=== PATIENT | female | born 1945 | race Hispanic/Latino ===

== ENCOUNTER 2018-06-14 20:12 | Emergency (ER) | payer MEDICARE, OTHER ==
[~2018-06-14] VITALS: Ht 152.4 cm; Wt 68.9 kg
[~2018-06-14 20:12] MED LIST: ATORVASTATIN CA10 MG PO; DIOVAN160 MG PO; HYDROCHLOROTHIA25 MG PO; LISINOPRIL10 MG; NEURONTIN100 MG; PROTONIX20 MG; RANITIDINE HCL300 M1 PO
--- OUTSIDE RECORDS SUMMARY | 2018-06-14 20:15 | XMS REPORT ---
Author [facility] Address Unknown Phone Unavailable Care Team Providers Care Production Operations Engineer Name Role Phone Don ASNTOS Unavailable Unavailable Lorrie JACKSON Unavailable Unavailable Problems This patient has no known problems. Allergies, Adverse Reactions, Alerts This patient has no known allergies or adverse reactions. Medications This patient has no known medications. Results Test Description Test Time Test Comments Text Results Atomic Results Result Comments CT BRAIN WO [place] [address] Patient Name: SUSI CHUNG MR #: [id number] : 1945 Age/Sex: 71/F Req #: [id number] Adm Physician: Ordered by: DONTAE SANTOS MD Report #: [id number] Location: ER Room/Bed: Procedure: [id number] CT/CT BRAIN WO Exam Date: 03/18/17 Exam Time: 1626 REPORT STATUS: Signed History: Left side weakness Comparison studies: None Technique: Axial images were obtained from the skull base to the vertex. Coronal and sagittal reconstructions obtained from the axial data. Findings: Scalp/skull: No abnormalities. No fractures, blastic or lytic lesions. Extra-axial spaces: No masses. No fluid collections. Brain sulci: Appropriate for age. Ventricles: Normal in size and configuration. No hydrocephalus. Parenchyma: No abnormal densities. No masses, hemorrhage, acute or chronic cortical vascular insults. Sellar/suprasellar region: No abnormalities Craniocervical junction: Patent foramen magnum. No Chiari one malformation. IMPRESSION: No abnormalities. Signed by: Dr. Greg Diaz M.D. on 03/18/2017 6:08 PM Dictated By: GREG DIAZ MD, MD 07 Transcribed By: HASMUKH on 03/18/171807 COPY TO: DONTAE SANTOS MD CT ABDOMEN/PELVIS W [place] [address] Patient Name: SUSI CHUNG MR #: [id number] : 1945 Age/Sex: 71/F Req #: [id number] Adm Physician: Ordered by: SATNAM JACKSON MD Report #: [id number] Location: ER Room/Bed: Procedure: [id number] CT/CT ABDOMEN/PELVIS W Exam Date: Exam Time: REPORT STATUS: Signed PROCEDURE: CT ABDOMEN AND PELVIS WITH CONTRAST COMPARISON: None. INDICATIONS: LOW ABDOMINAL PAIN, RADIATES TO BACK TECHNIQUE: Multidetector CT scanning of the abdomen and pelvis was performed from the level of the lung bases to below the symphysis pubis, after intravenous administration of 100 cc nonionic contrast. Coronal and sagittal reformations were obtained. FINDINGS: Lung bases: Clear. The visualized portion of the mediastinum is normal.. Abdomen: Liver: Normal in attenuation without mass. Gallbladder: Present and normal in appearance. Biliary tree: No intrahepatic or extra hepatic biliary ductal dilatation. Pancreas: Mild fatty atrophy without mass or duct dilatation. Spleen: Normal size and attenuation without mass. Adrenal glands: No evidence of m ass. Kidneys: Symmetric enhancement. No hydronephrosis. No cortical mass. Stomach: Distended with fluid. No perigastric inflammation. Aorta: Normal in diameter. The common iliac arteries are ectatic but not aneurysmally dilated. No free fluid or free air. Pelvis: Small bowel: Normal diameter with normal wall thickness. Large bowel: Diverticulosis coli of the sigmoid colon with mild peridiverticular inflammation of the mid sigmoid colon. No associated fluid collection. No large bowel dilatation. The appendix is normal. Bladder: Normal. No ureteral dilatation. The uterus is present. An enhancing lesion in the endometrial measures 2 cm. There are no adnexal masses. There is a trace amount of pelvic free fluid. No loculated fluid collection. Bones and soft tissues: Fat-containing umbilical hernia has an aperture of 12 mm. There is dextroscoliosis of the lumbar spine with superimposed endplate degenerative change. There is no evidence of lytic or blastic lesion. CONCLUSION: 1. Acute mild diverticulitis of the midsigmoid colon without evidence of abscess formation or bowel obstruction. 2. Enhancing mass in the endometrium could represent a polyp or fibroid. Recommend further evaluation with pelvic ultrasound. This can be performed on outpatient basis. Dictated by: Mary Beth Medel M.D. on 02/27/2017 at 14:23 Electronically approved by: Mary Beth Medel M.D. on 02/27/2017 at 14:23 Dictated By: MARY BETH MEDEL MD 1423 Transcribed By: PUJA on 02/27/17 1423 COPY TO: SATNAM JACKSON MD
--- NOTE | 2018-06-14 22:35 | Diagnostic Imaging Report ---
EXAMINATION: CHEST SINGLE (NOT PORTABLE) INDICATION: Cough, congestion, fever, chills. Midsternal discomfort. Patient states recent sternal biopsy. COMPARISON: None FINDINGS: AP view TUBES and LINES: None. LUNGS: Lungs are well inflated. Lungs are clear. There is no evidence of pneumonia or pulmonary edema. PLEURA: No pleural effusion or pneumothorax. HEART AND MEDIASTINUM: The cardiomediastinal silhouette is unremarkable. BONES AND SOFT TISSUES: No acute osseous lesion. Soft tissues are unremarkable. UPPER ABDOMEN: No free air under the diaphragm. IMPRESSION: No acute thoracic abnormality. Signed by: DR. Marc De León MD on 06/14/2018 10:31 PM
[2018-06-15 00:06] LABS: BASOPHILS % 0.4 % (0.0-1.0); EOSINOPHILS # (AUTO) 0.2 (0.0-0.4); EOSINOPHILS % 3.9 % (0.0-6.0); HEMATOCRIT 40.6 % (34.2-44.1); HEMOGLOBIN 13.9 g/dL (12.0-16.0); LYMPHOCYTES # (AUTO) 1.9 (1.0-3.2); LYMPHOCYTES % 33.7 % (18.0-39.1); MEAN CORPUSCULAR HEMOGLOBIN 29.5 pg (28-32); MEAN CORPUSCULAR HGB CONC 34.2 g/dL (31-35); MEAN CORPUSCULAR VOLUME 86.2 fL (81-99); MONOCYTES # (AUTO) 0.6 (0.2-0.8); NEUTROPHILS # (AUTO) 2.9 (2.1-6.9); NEUTROPHILS % 51.6 % (38.7-80.0); PLATELET COUNT 270 x10e3/uL (140-360); RED BLOOD COUNT 4.71 x10e6/uL (3.6-5.1); RED CELL DISTRIBUTION WIDTH 12.4 % (11.7-14.4)
[2018-06-15 00:09] LABS: CLARITY,URINE CLEAR (CLEAR); COLOR,URINE YELLOW (YELLOW)
[2018-06-15 00:10] LABS: BACTERIA,URINE RARE /HPF; BILIRUBIN,URINE NEGATIVE (NEGATIVE); EPITHELIAL CELLS,URINE FEW /LPF; KETONES,URINE NEGATIVE (NEGATIVE); LEUKOCYTE ESTERASE ,URINE TRACE (NEGATIVE); NITRITE,URINE NEGATIVE (NEGATIVE); PROTEIN,URINE DIPSTICK NEGATIVE (NEGATIVE); RBC,URINE 0-5 /HPF (0-5); URINE UROBILINOGEN 0.2 mg/dL (0.2 - 1)
[2018-06-15 00:14] LABS: INR 0.87; PROTHROMBIN TIME 12.7 seconds (11.9-14.5)
[2018-06-15 00:15] LABS: PARTIAL THROMBOPLASTIN TIME 28.3 seconds (23.8-35.5)
[2018-06-15 00:33] LABS: ALANINE AMINOTRANSFERASE 17 IU/L (0-55); ALBUMIN 3.7 g/dL (3.5-5.0); ALBUMIN/GLOBULIN RATIO 0.8 (0.8-2.0); ALKALINE PHOSPHATASE 92 IU/L (40-150); ANION GAP 14.4 mmol/L (8-16); BLOOD UREA NITROGEN 20 mg/dL (7-26); BUN/CREATININE RATIO 21 (6-25); CALCIUM 10.1 mg/dL (8.4-10.2); CARBON DIOXIDE 28 mmol/L (22-29); CHLORIDE 100 mmol/L (98-107); CREATINE KINASE 56 IU/L (29-168); CREATININE, SERUM 0.94 mg/dL (0.57-1.11); EST GLOMERULAR FILTRATION RATE 59 ML/MIN (60-); GLUCOSE 99 mg/dL (74-118); POTASSIUM 3.4 mmol/L (3.5-5.1); SODIUM 139 mmol/L (136-145)
[2018-06-15] MEDS ORDERED: MORPHINE SULFATE 2 MG/ML SYR IV STA (00:55)
[2018-06-15] MEDS ORDERED: ONDANSETRON HCL INJ 2 MG/ML VIAL IV STA (00:55)
[2018-06-15] MEDS ORDERED: POTASSIUM CHLORIDE 20 MEQ TAB CR PO STA (00:55)
[2018-06-15] MEDS ORDERED: CEFTRIAXONE SOD 1 GM VIAL IV ONE (01:00)
[2018-06-15] MEDS ORDERED: MORPHINE SULFATE INJ 4 MG/ML INJ ONE (01:26)
[2018-06-15 02:42] VITALS: BP 121/70
== END 2018-06-15 02:53 | disposition home or self-care (01) ==
LOC: ER 20:12
DX: R07.89 Other chest pain (principal); N30.90 Cystitis, unspecified without hematuria
CPT/HCPCS: 36415; 71045; 80053; 81001; 82550; 82553; 84484; 85025; 85610; 85730; 93005 ×2; 99284; J0696; J2270; J2405

== ENCOUNTER 2018-07-16 23:39 | Emergency (ER) | payer MEDICARE, OTHER ==
[~2018-07-16] VITALS: Ht 154.9 cm; Wt 68.9 kg
--- NOTE | 2018-07-17 00:45 | Diagnostic Imaging Report ---
CHEST 2 VIEWS, Technique: CHEST 2 VIEWS Comparison: 06/14/2018 Clinical history: Cough DISCUSSION: Lateral is degraded by overlying arm/soft tissues. Stable cardiac silhouette status post interval median sternotomy. Mild linear right greater than left bibasilar opacity, favor atelectasis. No effusion or pneumothorax. Partially imaged mild superior endplate compression of an upper lobe lumbar vertebral body. IMPRESSION: Mild bibasilar atelectasis. Signed by: Dr Celestina Sheppard MD on 07/17/2018 12:42 AM
[2018-07-17 02:02] VITALS: BP 136/71
== END 2018-07-17 02:18 | disposition home or self-care (01) ==
LOC: ER 23:39
DX: R05 Cough (principal); J20.9 Acute bronchitis, unspecified
CPT/HCPCS: 71046; 99283

== ENCOUNTER 2019-06-02 16:09 | Emergency (ER) | payer MEDICARE, OTHER ==
[~2019-06-02] VITALS: Ht 154.9 cm; Wt 68.9 kg
[2019-06-02] MEDS ORDERED: KETOROLAC TROMETHAMINE 30 MG/ML VIAL IM STA (16:48)
[2019-06-02] MEDS ORDERED: DEXAMETHASONE SOD PHOS 10 MG/1 ML VIAL IM ONE (17:00)
[2019-06-02] MEDS ORDERED: ALBUTEROL/IPRATROPIUM 3 ML NEB NEB ONE (17:00)
== END 2019-06-02 18:37 | disposition home or self-care (01) ==
LOC: ER 16:09
DX: R05 Cough (principal); T46.5X5A Adverse effect of other antihypertensive drugs, initial encounter; I10 Essential (primary) hypertension; E78.5 Hyperlipidemia, unspecified; K21.9 Gastro-esophageal reflux disease without esophagitis; Z88.5 Allergy status to narcotic agent
CPT/HCPCS: 94640; 99284; J1100; J1885

== ENCOUNTER 2020-10-07 14:09 | Emergency (ER) | payer MEDICARE, OTHER ==
[~2020-10-07] VITALS: Ht 152.4 cm; Wt 68.9 kg
[2020-10-07] MEDS ORDERED: KETOROLAC TROMETHAMINE 60 MG/2 ML VIAL IM ONE (14:45)
[2020-10-07] MEDS ORDERED: DEXAMETHASONE SOD PHOS 10 MG/1 ML VIAL IM ONE (14:45)
[2020-10-07 15:19] VITALS: BP 132/71
[2020-10-10] MEDS ORDERED: ULTRAM50 MG PO (22:11)
[2020-10-10] MEDS ORDERED: ONDANSETRON ODT4 MG PO (22:11)
== END 2020-10-07 15:40 | disposition home or self-care (01) ==
LOC: ER 14:48
DX: M54.41 Lumbago with sciatica, right side (principal); I10 Essential (primary) hypertension; E78.5 Hyperlipidemia, unspecified; K21.9 Gastro-esophageal reflux disease without esophagitis; M06.9 Rheumatoid arthritis, unspecified
CPT/HCPCS: 99283; J1100; J1885

== ENCOUNTER 2020-10-15 10:05 | Emergency (ER) | payer OTHER, MEDICARE ==
[~2020-10-15] VITALS: Ht 152.4 cm; Wt 67.6 kg
[~2020-10-15 10:05] MED LIST changes: +ONDANSETRON ODT4 MG PO; +ULTRAM50 MG PO
[2020-10-15] MEDS ORDERED: TRAMADOL HCL 50 MG TAB PO ONE (10:45)
[2020-10-15] MEDS ORDERED: ULTRAM50 MG PO (12:09)
[2020-10-15 14:31] VITALS: BP 124/56
== END 2020-10-15 12:21 | disposition home or self-care (01) ==
LOC: ER 10:44
DX: M25.562 Pain in left knee (principal); M77.32 Calcaneal spur, left foot; M79.89 Other specified soft tissue disorders; W01.0XXA Fall on same level from slipping, tripping and stumbling without subsequent striking against object, initial encounter; Y93.01 Activity, walking, marching and hiking; Y92.008 Other place in unspecified non-institutional (private) residence as the place of occurrence of the external cause; I10 Essential (primary) hypertension; E78.5 Hyperlipidemia, unspecified; K21.9 Gastro-esophageal reflux disease without esophagitis; M06.9 Rheumatoid arthritis, unspecified; Z79.01 Long term (current) use of anticoagulants
CPT/HCPCS: 70450; 72125; 99283

== ENCOUNTER 2020-11-12 03:02 | Inpatient (IN) | payer MEDICARE, OTHER ==
[~2020-11-12] VITALS: Ht 152.4 cm; Wt 66.7 kg
[2020-11-12] VITALS (7 sets, daily range): BP systolic 130–175; BP diastolic 71–89
[2020-11-12] MEDS ORDERED: ONDANSETRON HCL INJ 2MG/ML 2ML 2 MG/ML VIAL IV STA (03:26)
[2020-11-12] MEDS ORDERED: PANTOPRAZOLE 40 MG 10ML VIAL IV STA (03:26)
[2020-11-12] MEDS ORDERED: SODIUM CHLORIDE 0.9% 1000ML 1,000 ML IV ONE (03:30)
[2020-11-12] MEDS ORDERED: DICYCLOMINE HCL 20 MG/2 ML VIAL IM ONE ×2 (03:30→03:38)
[2020-11-12 03:31] LABS: BASOPHILS # (AUTO) 0.1 (0.0-0.1); BASOPHILS % 0.3 % (0.0-1.0); EOSINOPHILS % 0.1 % (0.0-6.0); HEMATOCRIT 41.2 % (34.2-44.1); HEMOGLOBIN 14.2 g/dL (12.0-16.0); LYMPHOCYTES % 6.1 % (18.0-39.1); MEAN CORPUSCULAR HEMOGLOBIN 30.5 pg (28-32); MEAN CORPUSCULAR HGB CONC 34.5 g/dL (31-35); MEAN CORPUSCULAR VOLUME 88.4 fL (81-99); MONOCYTES # (AUTO) 1.3 (0.2-0.8); MONOCYTES % 7.9 % (4.4-11.3); NEUTROPHILS # (AUTO) 14.2 (2.1-6.9); NEUTROPHILS % 84.8 % (38.7-80.0); PLATELET COUNT 204 x10e3/uL (140-360); RED BLOOD COUNT 4.66 x10e6/uL (3.6-5.1); RED CELL DISTRIBUTION WIDTH 13.3 % (11.7-14.4)
[2020-11-12] MEDS ORDERED: SODIUM CHLORIDE 0.9% 1000ML 1,000 ML ONE (03:38)
[2020-11-12] MEDS ORDERED: ONDANSETRON HCL INJ 2MG/ML 2ML 2 MG/ML VIAL ONE (03:38)
[2020-11-12] MEDS ORDERED: PANTOPRAZOLE 40 MG 10ML VIAL ONE (03:38)
[2020-11-12 03:48] LABS: AMYLASE 201 U/L (25-125); LIPASE 341 U/L (8-78)
[2020-11-12 03:52] LABS: ALANINE AMINOTRANSFERASE 17 IU/L (0-55); ALBUMIN 3.8 g/dL (3.5-5.0); ALBUMIN/GLOBULIN RATIO 1.1 (0.8-2.0); ALKALINE PHOSPHATASE 82 IU/L (40-150); ANION GAP 13.1 mmol/L (8-16); BLOOD UREA NITROGEN 19 mg/dL (7-26); BUN/CREATININE RATIO 24 (6-25); CALCIUM 9.4 mg/dL (8.4-10.2); CARBON DIOXIDE 21 mmol/L (22-29); CHLORIDE 107 mmol/L (98-107); CREATINE KINASE 38 IU/L (29-168); EST GLOMERULAR FILTRATION RATE > 60 ML/MIN (60-); GLUCOSE 128 mg/dL (74-118); POTASSIUM 4.1 mmol/L (3.5-5.1); SODIUM 137 mmol/L (136-145)
[2020-11-12] MEDS ORDERED: PIPERACILLIN/TAZOBACTAM 3.375 GM in SODIUM CHLORIDE 0.9% 50ML 50 ML IV ONE (04:00)
[2020-11-12 04:04] LABS: CLARITY,URINE SL CLOUDY (CLEAR); COLOR,URINE YELLOW (YELLOW); KETONES,URINE NEGATIVE (NEGATIVE); LEUKOCYTE ESTERASE ,URINE NEGATIVE (NEGATIVE); NITRITE,URINE NEGATIVE (NEGATIVE); PROTEIN,URINE DIPSTICK NEGATIVE (NEGATIVE); URINE UROBILINOGEN 0.2 mg/dL (0.2 - 1)
[2020-11-12 04:11] LABS: AMORPHOUS SEDIMENT,URINE FEW (FEW); BACTERIA,URINE FEW /HPF; EPITHELIAL CELLS,URINE MODERATE /LPF; WBC,URINE (MAN) 0-5 /HPF (0-5)
[2020-11-12] MEDS ORDERED: IOPAMIDOL 370 MG/ML 200 ML INFUS..BTL INJ ONE (04:16)
[2020-11-12] MEDS ORDERED: SODIUM CHLORIDE 0.9% 50ML 50 ML ONE (04:16)
[2020-11-12] MEDS ORDERED: MORPHINE SULFATE INJ 2 MG/ML SYR IV PRN (05:00)
[2020-11-12] MEDS: SODIUM CHLORIDE 0.9% 1000ML 1,000 ML IV SCH ×3 (05:53→21:00)
[2020-11-12] MEDS ORDERED: COREG12.5 MG PO (08:10)
[2020-11-12] MEDS ORDERED: OMEPRAZOLE40 MG PO (08:10)
[2020-11-12] MEDS ORDERED: METOPROLOL TARTRATE INJ 1 MG/ML VIAL IV PRN (10:30)
[2020-11-12] MEDS: FAMOTIDINE 20 MG/2 ML VIAL IV SCH (17:00)
[2020-11-12] MEDS: CARVEDILOL 12.5 MG TAB PO SCH (17:00)
[2020-11-12] MEDS: PIPERACILLIN/TAZOBACTAM 3.375 GM in SODIUM CHLORIDE 0.9% 50ML 50 ML IV SCH ×3 (18:46→23:46)
[2020-11-12] MEDS: ATORVASTATIN 10 MG TAB PO SCH (21:00)
[2020-11-13] VITALS (8 sets, daily range): BP systolic 116–164; BP diastolic 68–82
[2020-11-13] MEDS: SODIUM CHLORIDE 0.9% 1000ML 1,000 ML IV SCH ×3 (05:00→20:49)
[2020-11-13 05:34] LABS: BASOPHILS % 0.4 % (0.0-1.0); EOSINOPHILS # (AUTO) 0.1 (0.0-0.4); EOSINOPHILS % 1.7 % (0.0-6.0); LYMPHOCYTES # (AUTO) 1.7 (1.0-3.2); LYMPHOCYTES % 23.9 % (18.0-39.1); MEAN CORPUSCULAR HEMOGLOBIN 30.1 pg (28-32); MEAN CORPUSCULAR HGB CONC 33.3 g/dL (31-35); MEAN CORPUSCULAR VOLUME 90.4 fL (81-99); MONOCYTES # (AUTO) 0.7 (0.2-0.8); MONOCYTES % 9.2 % (4.4-11.3); NEUTROPHILS # (AUTO) 4.6 (2.1-6.9); PLATELET COUNT 156 x10e3/uL (140-360); RED BLOOD COUNT 3.65 x10e6/uL (3.6-5.1); RED CELL DISTRIBUTION WIDTH 13.7 % (11.7-14.4)
[2020-11-13] MEDS: PIPERACILLIN/TAZOBACTAM 3.375 GM in SODIUM CHLORIDE 0.9% 50ML 50 ML IV SCH ×3 (05:46→21:32)
[2020-11-13 06:01] LABS: ALANINE AMINOTRANSFERASE 15 IU/L (0-55); ALBUMIN 2.6 g/dL (3.5-5.0); ALBUMIN/GLOBULIN RATIO 1.1 (0.8-2.0); ALKALINE PHOSPHATASE 55 IU/L (40-150); AMYLASE 48 U/L (25-125); ANION GAP 11.6 mmol/L (8-16); BLOOD UREA NITROGEN 11 mg/dL (7-26); BUN/CREATININE RATIO 15 (6-25); CALCIUM 8.1 mg/dL (8.4-10.2); CARBON DIOXIDE 19 mmol/L (22-29); CHLORIDE 113 mmol/L (98-107); CREATININE, SERUM 0.72 mg/dL (0.57-1.11); EST GLOMERULAR FILTRATION RATE > 60 ML/MIN (60-); GLUCOSE 80 mg/dL (74-118); LIPASE 28 U/L (8-78); POTASSIUM 3.6 mmol/L (3.5-5.1); SODIUM 140 mmol/L (136-145)
[2020-11-13] MEDS: CARVEDILOL 12.5 MG TAB PO SCH ×2 (08:00→18:12)
[2020-11-13] MEDS: PANTOPRAZOLE SOD 40 MG TABEC PO SCH (09:00)
[2020-11-13] MEDS: FAMOTIDINE 20 MG/2 ML VIAL IV SCH ×2 (09:00→18:12)
[2020-11-13] MEDS: ONDANSETRON HCL INJ 2MG/ML 2ML 2 MG/ML VIAL IV PRN ×2 (09:36→18:07)
[2020-11-13] MEDS: MORPHINE SULFATE INJ 4 MG/ML INJ 1ML IV PRN ×2 (09:36→18:07)
[2020-11-13] MEDS: ATORVASTATIN 10 MG TAB PO SCH (20:49)
[2020-11-14] VITALS (7 sets, daily range): BP systolic 116–159; BP diastolic 66–85
[2020-11-14] MEDS: SODIUM CHLORIDE 0.9% 1000ML 1,000 ML IV SCH ×3 (05:00→22:16)
[2020-11-14] MEDS: PIPERACILLIN/TAZOBACTAM 3.375 GM in SODIUM CHLORIDE 0.9% 50ML 50 ML IV SCH ×3 (05:38→22:16)
[2020-11-14 07:53] LABS: BASOPHILS % 0.5 % (0.0-1.0); EOSINOPHILS # (AUTO) 0.2 (0.0-0.4); EOSINOPHILS % 2.9 % (0.0-6.0); HEMATOCRIT 33.7 % (34.2-44.1); HEMOGLOBIN 11.6 g/dL (12.0-16.0); LYMPHOCYTES # (AUTO) 2.3 (1.0-3.2); LYMPHOCYTES % 39.9 % (18.0-39.1); MEAN CORPUSCULAR HEMOGLOBIN 30.4 pg (28-32); MEAN CORPUSCULAR HGB CONC 34.4 g/dL (31-35); MEAN CORPUSCULAR VOLUME 88.2 fL (81-99); MONOCYTES # (AUTO) 0.7 (0.2-0.8); MONOCYTES % 11.4 % (4.4-11.3); NEUTROPHILS # (AUTO) 2.6 (2.1-6.9); NEUTROPHILS % 44.4 % (38.7-80.0); PLATELET COUNT 157 x10e3/uL (140-360); RED BLOOD COUNT 3.82 x10e6/uL (3.6-5.1); RED CELL DISTRIBUTION WIDTH 13.6 % (11.7-14.4)
[2020-11-14] MEDS: CARVEDILOL 12.5 MG TAB PO SCH ×2 (08:00→17:00)
[2020-11-14 08:17] LABS: ANION GAP 12.3 mmol/L (8-16); BLOOD UREA NITROGEN 8 mg/dL (7-26); BUN/CREATININE RATIO 10 (6-25); CALCIUM 8.3 mg/dL (8.4-10.2); CARBON DIOXIDE 22 mmol/L (22-29); CHLORIDE 109 mmol/L (98-107); CREATININE, SERUM 0.77 mg/dL (0.57-1.11); EST GLOMERULAR FILTRATION RATE > 60 ML/MIN (60-); GLUCOSE 80 mg/dL (74-118); MAGNESIUM 1.7 MG/DL (1.3-2.1); PHOSPHORUS 3.6 MG/DL (2.3-4.7); POTASSIUM 3.3 mmol/L (3.5-5.1); SODIUM 140 mmol/L (136-145)
[2020-11-14] MEDS: PANTOPRAZOLE SOD 40 MG TABEC PO SCH (09:19)
[2020-11-14] MEDS: FAMOTIDINE 20 MG/2 ML VIAL IV SCH ×2 (09:19→17:12)
[2020-11-14] MEDS: METRONIDAZOLE 500MG/NS 100ML 100 ML IV SCH ×2 (12:33→20:42)
[2020-11-14 18:13] LABS: HEMATOCRIT 37.3 % (34.2-44.1); HEMOGLOBIN 12.7 g/dL (12.0-16.0)
[2020-11-14] MEDS: ATORVASTATIN 10 MG TAB PO SCH (20:43)
[2020-11-15] VITALS: BP 147/74
[2020-11-15] MEDS: METRONIDAZOLE 500MG/NS 100ML 100 ML IV SCH ×3 (04:01→20:34)
[2020-11-15] MEDS: ACETAMINOPHEN 325 MG TAB PO PRN (04:02)
[2020-11-15] MEDS: PIPERACILLIN/TAZOBACTAM 3.375 GM in SODIUM CHLORIDE 0.9% 50ML 50 ML IV SCH ×3 (05:01→22:45)
[2020-11-15] MEDS ORDERED: LOPERAMIDE HCL 2 MG CAP PO PRN (05:45)
[2020-11-15 06:44] LABS: BASOPHILS % 0.5 % (0.0-1.0); EOSINOPHILS # (AUTO) 0.2 (0.0-0.4); HEMATOCRIT 33.8 % (34.2-44.1); HEMOGLOBIN 11.6 g/dL (12.0-16.0); LYMPHOCYTES # (AUTO) 2.1 (1.0-3.2); LYMPHOCYTES % 37.5 % (18.0-39.1); MEAN CORPUSCULAR HEMOGLOBIN 30.2 pg (28-32); MEAN CORPUSCULAR HGB CONC 34.3 g/dL (31-35); MONOCYTES # (AUTO) 0.5 (0.2-0.8); MONOCYTES % 9.8 % (4.4-11.3); NEUTROPHILS # (AUTO) 2.6 (2.1-6.9); NEUTROPHILS % 47.8 % (38.7-80.0); PLATELET COUNT 152 x10e3/uL (140-360); RED BLOOD COUNT 3.84 x10e6/uL (3.6-5.1); RED CELL DISTRIBUTION WIDTH 13.4 % (11.7-14.4)
[2020-11-15 07:03] LABS: ANION GAP 10.7 mmol/L (8-16); BLOOD UREA NITROGEN 6 mg/dL (7-26); BUN/CREATININE RATIO 8 (6-25); CALCIUM 8.1 mg/dL (8.4-10.2); CARBON DIOXIDE 23 mmol/L (22-29); CHLORIDE 112 mmol/L (98-107); CREATININE, SERUM 0.76 mg/dL (0.57-1.11); EST GLOMERULAR FILTRATION RATE > 60 ML/MIN (60-); GLUCOSE 88 mg/dL (74-118); POTASSIUM 3.7 mmol/L (3.5-5.1); SODIUM 142 mmol/L (136-145)
[2020-11-15 07:25] LABS: MAGNESIUM 1.6 MG/DL (1.3-2.1)
[2020-11-15 07:49] LABS: PHOSPHORUS 3.4 MG/DL (2.3-4.7)
[2020-11-15 08:16] VITALS: BP 174/92
[2020-11-15] MEDS: FAMOTIDINE 20 MG/2 ML VIAL IV SCH ×2 (08:50→16:57)
[2020-11-15] MEDS: PANTOPRAZOLE SOD 40 MG TABEC PO SCH (08:50)
[2020-11-15] MEDS: CARVEDILOL 12.5 MG TAB PO SCH ×2 (08:51→17:48)
[2020-11-15 08:54] VITALS: BP 174/92
[2020-11-15] MEDS: SODIUM CHLORIDE 0.9% 1000ML 1,000 ML IV SCH ×3 (08:54→20:34)
[2020-11-15 11:52] VITALS: BP 138/68
[2020-11-15 16:22] VITALS: BP 136/99
[2020-11-15 20:00] VITALS: BP 140/80
[2020-11-15] MEDS: ATORVASTATIN 10 MG TAB PO SCH (20:34)
[2020-11-16] VITALS: BP 150/71
[2020-11-16] MEDS: ACETAMINOPHEN 325 MG TAB PO PRN (03:35)
[2020-11-16 04:00] VITALS: BP 175/86
[2020-11-16] MEDS: SODIUM CHLORIDE 0.9% 1000ML 1,000 ML IV SCH (04:23)
[2020-11-16] MEDS: METRONIDAZOLE 500MG/NS 100ML 100 ML IV SCH (04:23)
[2020-11-16] MEDS ORDERED: HYDRALAZINE HCL 20 MG/ML VIAL IV PRN (05:15)
[2020-11-16] MEDS: PIPERACILLIN/TAZOBACTAM 3.375 GM in SODIUM CHLORIDE 0.9% 50ML 50 ML IV SCH (05:52)
[2020-11-16] MEDS ORDERED: IMODIUM2 MG PO (07:32)
[2020-11-16] MEDS ORDERED: KEFLEX125 MG/5 M PO (07:32)
[2020-11-16] MEDS ORDERED: PANTOPRAZOLE SO40 MG PO (07:32)
[2020-11-16] MEDS ORDERED: FLAGYL500 MG PO (07:32)
[2020-11-16 07:58] VITALS: BP 164/76
[2020-11-16] MEDS ORDERED: HYDRALAZINE HCL 20 MG/ML VIAL IV ONE (08:10)
[2020-11-16 08:44] VITALS: BP 164/76
[2020-11-16] MEDS: CARVEDILOL 12.5 MG TAB PO SCH (08:54)
[2020-11-16] MEDS: FAMOTIDINE 20 MG/2 ML VIAL IV SCH (08:55)
[2020-11-16] MEDS: PANTOPRAZOLE SOD 40 MG TABEC PO SCH (08:55)
== END 2020-11-16 10:00 | disposition home or self-care (01) | DRG 373 ==
LOC: ER 03:08 → ERHOLD 04:52 → MED/SURG3 07:00
PROVIDERS: ADMIT Internal Medicine; ATTEND Internal Medicine
DX: A04.9 Bacterial intestinal infection, unspecified (principal); I10 Essential (primary) hypertension; K21.9 Gastro-esophageal reflux disease without esophagitis; K57.90 Diverticulosis of intestine, part unspecified, without perforation or abscess without bleeding; E78.5 Hyperlipidemia, unspecified; Z20.822 Contact with and (suspected) exposure to COVID-19
CPT/HCPCS: 36415; 74177; 80048; 80053; 81001; 82150; 82550; 82553; 83690; 83735; 84100; 84484; 85014; 85018; 85025; 87040; 87045; 87177; 87493; 93005; 99251; 99285; J0360; J0500; J2270; J2405; J2543; J7030; Q9967; U0002

== ENCOUNTER 2021-07-30 11:25 | Emergency (ER) | payer MEDICARE, OTHER ==
[~2021-07-30] VITALS: Ht 154.9 cm; Wt 66.7 kg
[~2021-07-30 11:25] MED LIST changes: +COREG12.5 MG PO; +FLAGYL500 MG PO; +IMODIUM2 MG PO; +KEFLEX125 MG/5 M PO; +OMEPRAZOLE40 MG PO; +PANTOPRAZOLE SO40 MG PO
[2021-07-30 12:11] LABS: BASOPHILS % 0.3 % (0.0-1.0); EOSINOPHILS # (AUTO) 0.1 (0.0-0.4); EOSINOPHILS % 1.4 % (0.0-6.0); HEMATOCRIT 39.6 % (34.2-44.1); HEMOGLOBIN 12.8 g/dL (12.0-16.0); LYMPHOCYTES # (AUTO) 1.8 (1.0-3.2); MEAN CORPUSCULAR HEMOGLOBIN 30.7 pg (28-32); MEAN CORPUSCULAR HGB CONC 32.3 g/dL (31-35); MONOCYTES # (AUTO) 0.7 (0.2-0.8); MONOCYTES % 9.9 % (4.4-11.3); NEUTROPHILS # (AUTO) 4.7 (2.1-6.9); NEUTROPHILS % 64.1 % (38.7-80.0); PLATELET COUNT 215 x10e3/uL (140-360); RED BLOOD COUNT 4.17 x10e6/uL (3.6-5.1); RED CELL DISTRIBUTION WIDTH 12.9 % (11.7-14.4)
[2021-07-30 12:14] LABS: CLARITY,URINE CLEAR (CLEAR); COLOR,URINE YELLOW (YELLOW)
[2021-07-30 12:15] LABS: KETONES,URINE NEGATIVE (NEGATIVE); LEUKOCYTE ESTERASE ,URINE NEGATIVE (NEGATIVE); NITRITE,URINE NEGATIVE (NEGATIVE); PROTEIN,URINE DIPSTICK NEGATIVE (NEGATIVE); URINE UROBILINOGEN 0.2 mg/dL (0.2 - 1)
[2021-07-30 12:25] LABS: BACTERIA,URINE RARE /HPF; EPITHELIAL CELLS,URINE FEW /LPF; RBC,URINE 0-5 /HPF (0-5); WBC,URINE (MAN) 0-5 /HPF (0-5)
[2021-07-30 12:38] LABS: ALBUMIN 3.4 g/dL (3.5-5.0); ANION GAP 12.4 mmol/L (8-16); CALCIUM 9.6 mg/dL (8.4-10.2); CREATININE, SERUM 0.78 mg/dL (0.57-1.11); POTASSIUM 4.4 mmol/L (3.5-5.1)
[2021-07-30] MEDS ORDERED: SODIUM CHLORIDE 0.9% 50ML 50 ML ONE (13:22)
[2021-07-30] MEDS ORDERED: IOPAMIDOL 370 MG/ML 200 ML INFUS..BTL INJ ONE (13:22)
== END 2021-07-30 14:50 | disposition home or self-care (01) ==
LOC: ER 11:30
DX: R10.30 Lower abdominal pain, unspecified (principal); I10 Essential (primary) hypertension; K57.32 Diverticulitis of large intestine without perforation or abscess without bleeding; E72.89 Other specified disorders of amino-acid metabolism
CPT/HCPCS: 36415; 74177; 80053; 81001; 83690; 85025; 99284; Q9967

== ENCOUNTER → 2021-10-11 | Day surgery (SDC) | payer MEDICARE, OTHER ==
[2021-10-09 14:53] LABS: BASOPHILS % 0.5 % (0.0-1.0); EOSINOPHILS # (AUTO) 0.1 (0.0-0.4); EOSINOPHILS % 1.4 % (0.0-6.0); HEMATOCRIT 39.9 % (34.2-44.1); HEMOGLOBIN 13.1 g/dL (12.0-16.0); LYMPHOCYTES # (AUTO) 1.8 (1.0-3.2); LYMPHOCYTES % 32.8 % (18.0-39.1); MEAN CORPUSCULAR HEMOGLOBIN 30.3 pg (28-32); MEAN CORPUSCULAR HGB CONC 32.8 g/dL (31-35); MEAN CORPUSCULAR VOLUME 92.1 fL (81-99); MONOCYTES # (AUTO) 0.5 (0.2-0.8); MONOCYTES % 9.6 % (4.4-11.3); NEUTROPHILS # (AUTO) 3.1 (2.1-6.9); NEUTROPHILS % 55.3 % (38.7-80.0); PLATELET COUNT 227 x10e3/uL (140-360); RED BLOOD COUNT 4.33 x10e6/uL (3.6-5.1); RED CELL DISTRIBUTION WIDTH 12.3 % (11.7-14.4)
[~2021-10-11] MED LIST changes: +GLYCOPYRROLATE INJ 0.2 MG/ML VIAL ONE; +HYOSCYAMINE SULFATE 0.5 MG/ML INJ ONE; +LIDOCAINE HCL 2% LOCAL INJ 5 ML SDV VIAL INJ ONE; +MIDAZOLAM HCL 2 MG/2 ML VIAL ONE; +PROPOFOL IV EMULSION 10 MG/ML 20 ML VIAL ONE
[2021-10-11 10:00] VITALS: BP 148/94
== END | disposition home or self-care (01) ==
LOC: OR 05:57
PROVIDERS: ATTEND Internal Medicine Gastroenterology
DX: K21.9 Gastro-esophageal reflux disease without esophagitis (principal); K63.5 Polyp of colon; K31.7 Polyp of stomach and duodenum; K29.50 Unspecified chronic gastritis without bleeding; K20.90 Esophagitis, unspecified without bleeding; K31.A11 Gastric intestinal metaplasia without dysplasia, involving the antrum; K25.9 Gastric ulcer, unspecified as acute or chronic, without hemorrhage or perforation; K31.1 Adult hypertrophic pyloric stenosis; K57.30 Diverticulosis of large intestine without perforation or abscess without bleeding; I78.1 Nevus, non-neoplastic; K64.8 Other hemorrhoids; I10 Essential (primary) hypertension; M62.81 Muscle weakness (generalized); R00.1 Bradycardia, unspecified; M06.9 Rheumatoid arthritis, unspecified; Z88.6 Allergy status to analgesic agent; Z01.810 Encounter for preprocedural cardiovascular examination; Z01.812 Encounter for preprocedural laboratory examination; Z20.822 Contact with and (suspected) exposure to COVID-19; Z79.899 Other long term (current) drug therapy; Z87.19 Personal history of other diseases of the digestive system
CPT/HCPCS: 36415; 43239; 43245; 45380; 85025; 93005; C9113; J1980; J2001; J2250; J2704; U0002; 43450; 45378

== ENCOUNTER → 2021-12-04 | Outpatient (CLI) | payer MEDICARE, OTHER ==
[~2021-12-04] MED LIST changes: -GLYCOPYRROLATE INJ 0.2 MG/ML VIAL ONE; -HYOSCYAMINE SULFATE 0.5 MG/ML INJ ONE; -LIDOCAINE HCL 2% LOCAL INJ 5 ML SDV VIAL INJ ONE; -MIDAZOLAM HCL 2 MG/2 ML VIAL ONE; -PROPOFOL IV EMULSION 10 MG/ML 20 ML VIAL ONE
== END ==
LOC: MRI 09:35
PROVIDERS: ATTEND Specialist
DX: M54.12 Radiculopathy, cervical region (principal)
CPT/HCPCS: 72141

== ENCOUNTER 2021-12-10 15:18 | Outpatient (RCR) | payer MEDICARE, OTHER | END 2021-12-12 | LOC: OT 15:18 | PROVIDERS: ATTEND Specialist | DX: M75.101 Unspecified rotator cuff tear or rupture of right shoulder, not specified as traumatic (principal) ==

== ENCOUNTER 2022-01-08 16:00 | Outpatient (RCR) | payer MEDICARE, OTHER | END 2022-01-12 | LOC: OT 16:00 | PROVIDERS: ATTEND Specialist | DX: M75.101 Unspecified rotator cuff tear or rupture of right shoulder, not specified as traumatic (principal) ==

== ENCOUNTER 2022-01-31 10:35 | Emergency (ER) | payer MEDICARE, OTHER ==
[~2022-01-31] VITALS: Ht 154.9 cm; Wt 66.7 kg
[2022-01-31] MEDS ORDERED: BENZONATATE 100 MG CAP PO STA (10:54)
== END 2022-01-31 13:00 | disposition home or self-care (01) ==
LOC: ER 11:07
DX: R05.9 Cough, unspecified (principal); I10 Essential (primary) hypertension
CPT/HCPCS: 71045; 99283

== ENCOUNTER 2022-02-01 14:50 | Emergency (ER) | payer MEDICARE, OTHER ==
[~2022-02-01] VITALS: Ht 154.9 cm; Wt 66.7 kg
[2022-02-01] MEDS ORDERED: DEXAMETHASONE SOD PHOS 10 MG/1 ML VIAL IM NR (16:45)
[2022-02-01] MEDS ORDERED: ALBUTEROL/IPRATROPIUM 3 ML NEB NEB NR (16:45)
== END 2022-02-01 18:29 | disposition home or self-care (01) ==
LOC: ER 15:24
DX: R05.9 Cough, unspecified (principal); J40 Bronchitis, not specified as acute or chronic; I10 Essential (primary) hypertension; K21.9 Gastro-esophageal reflux disease without esophagitis
CPT/HCPCS: 94640; 94799; 99283; J1100

== ENCOUNTER → 2022-03-28 | Outpatient (CLI) | payer MEDICARE, OTHER | LOC: MRI 13:50 | PROVIDERS: ATTEND Specialist | DX: M75.101 Unspecified rotator cuff tear or rupture of right shoulder, not specified as traumatic (principal) ==

== ENCOUNTER → 2022-04-02 | Outpatient (CLI) | payer MEDICARE, OTHER | LOC: RAD 15:04 | PROVIDERS: ATTEND Internal Medicine Rheumatology | DX: M54.50 Low back pain, unspecified (principal); M25.542 Pain in joints of left hand; M25.541 Pain in joints of right hand; M79.10 Myalgia, unspecified site | CPT/HCPCS: 72100 ==

== ENCOUNTER → 2022-09-05 | Outpatient (CLI) | payer MEDICARE | LOC: MAMMO 12:34 | PROVIDERS: ATTEND Internal Medicine | DX: Z12.31 Encounter for screening mammogram for malignant neoplasm of breast (principal); M85.88 Other specified disorders of bone density and structure, other site | CPT/HCPCS: 77067; 77080 ==

== ENCOUNTER 2022-10-10 13:00 | Outpatient (RCR) | payer MEDICARE ==
[~2022-10-10 13:00] MED LIST changes: +NAPROXEN250 MG PO
== END 2022-10-12 ==
LOC: PT 13:00
PROVIDERS: ATTEND Physician Assistant
DX: M53.3 Sacrococcygeal disorders, not elsewhere classified (principal)

== ENCOUNTER 2022-10-15 15:02 | Emergency (ER) | payer MEDICARE ==
[~2022-10-15] VITALS: Ht 152.4 cm; Wt 66.7 kg
[2022-10-15] MEDS ORDERED: CEFDINIR300 MG PO (16:29)
[2022-10-15 16:37] VITALS: BP 161/67
== END 2022-10-15 16:40 | disposition home or self-care (01) ==
LOC: FSED 15:08
DX: R10.32 Left lower quadrant pain (principal); N39.0 Urinary tract infection, site not specified; I10 Essential (primary) hypertension; K21.9 Gastro-esophageal reflux disease without esophagitis
CPT/HCPCS: 74176; 80048; 80076; 81003; 85025; 99283

== ENCOUNTER 2022-10-31 15:12 | Outpatient (RCR) | payer MEDICARE ==
[~2022-10-31 15:12] MED LIST changes: +CEFDINIR300 MG PO
== END 2022-11-12 ==
LOC: PT 15:12
PROVIDERS: ATTEND Physician Assistant
DX: M53.3 Sacrococcygeal disorders, not elsewhere classified (principal)

== ENCOUNTER 2022-11-14 08:43 | Outpatient (RCR) | payer MEDICARE | END 2022-12-12 | LOC: PT 08:43 | PROVIDERS: ATTEND Physician Assistant | DX: M53.3 Sacrococcygeal disorders, not elsewhere classified (principal) ==

== ENCOUNTER 2023-05-12 06:34 | Observation (INO) | payer MEDICARE, OTHER ==
[2023-05-11 12:49] LABS: BASOPHILS % 0.6 % (0.0-1.0); EOSINOPHILS # (AUTO) 0.1 (0.0-0.4); EOSINOPHILS % 2.1 % (0.0-6.0); HEMATOCRIT 36.5 % (34.2-44.1); HEMOGLOBIN 12.4 g/dL (12.0-16.0); LYMPHOCYTES % 37.3 % (18.0-39.1); MEAN CORPUSCULAR HEMOGLOBIN 30.5 pg (28-32); MEAN CORPUSCULAR VOLUME 89.9 fL (81-99); MONOCYTES # (AUTO) 0.5 (0.2-0.8); MONOCYTES % 9.7 % (4.4-11.3); NEUTROPHILS # (AUTO) 2.7 (2.1-6.9); NEUTROPHILS % 50.1 % (38.7-80.0); PLATELET COUNT 177 x10e3/uL (140-360); RED BLOOD COUNT 4.06 x10e6/uL (3.6-5.1); RED CELL DISTRIBUTION WIDTH 12.5 % (11.7-14.4); WHITE BLOOD COUNT 5.36 x10e3/uL (4.8-10.8)
[~2023-05-12] VITALS: Ht 152.4 cm; Wt 67.6 kg
[~2023-05-12 06:34] MED LIST changes: +ACETAMINOPHEN325 M1 PO; +CRESTOR10 MG PO; +MULTI-VITAMIN1 EACH PO; +VITAMIN D3 COM1 EACH PO
[2023-05-12] MEDS ORDERED: GABAPENTIN 300 MG CAP ONE (07:20)
[2023-05-12] MEDS ORDERED: CELECOXIB 200 MG CAP ONE (07:20)
[2023-05-12] MEDS ORDERED: DEXAMETHASONE SOD PHOS 10 MG/1 ML VIAL ONE (07:20)
[2023-05-12] MEDS ORDERED: LACTATED RINGER'S 1,000 ML ONE (07:21)
[2023-05-12] MEDS ORDERED: CEFAZOLIN SODIUM 2 GM ONE (07:21)
[2023-05-12] MEDS ORDERED: ROPIVACAINE 246.25 MG, EPINEPHRINE HCL 1:1000 1ML 0.5 MG, CLONIDINE HCL 0.08 MG, KETORO... INJ ONE ×5 (08:00)
[2023-05-12] MEDS ORDERED: SODIUM CHLORIDE 0.9% 500ML 500 ML ONE (08:22)
[2023-05-12] MEDS ORDERED: Vancomycin IV 1,000 MG ONE (08:22)
[2023-05-12] MEDS ORDERED: TRANEXAMIC ACID 20 ML ONE (08:23)
[2023-05-12] MEDS ORDERED: DIPHENHYDRAMINE HCL INJ 50 MG/ML VIAL IV PRN (12:00)
[2023-05-12] MEDS ORDERED: ZOLPIDEM TARTRATE 5 MG TAB PO PRN (12:00)
[2023-05-12] MEDS ORDERED: HYDROCODONE/APAP 5MG-325MG TAB PO PRN (12:00)
[2023-05-12] MEDS ORDERED: ONDANSETRON HCL INJ 2MG/ML 2ML 2 MG/ML VIAL IV PRN (12:00)
[2023-05-12] MEDS ORDERED: ACETAMINOPHEN 650 MG SUPP PR PRN (12:00)
[2023-05-12] MEDS ORDERED: HYDROCODONE/APAP 7.5MG-325MG 1 EA TAB PO PRN (12:00)
[2023-05-12] MEDS ORDERED: DOCUSATE SODIUM 100 MG CAP PO PRN (12:00)
[2023-05-12] MEDS: FENTANYL CITRATE/PF 100MCG/2 ML INJ ONE ×2 (12:29→12:45)
[2023-05-12] MEDS ORDERED: KETOROLAC TROMETHAMINE 30 MG/ML VIAL ONE (13:12)
[2023-05-12] MEDS ORDERED: NEOSTIGMINE 1 MG/ML 10ML VIAL ONE (13:46)
[2023-05-12] MEDS ORDERED: ONDANSETRON HCL INJ 2MG/ML 2ML 2 MG/ML VIAL ONE ×2 (13:46→14:28)
[2023-05-12] MEDS ORDERED: DEXAMETHASONE SOD PHOS INJ 4 MG/ML SDV ONE (13:46)
[2023-05-12] MEDS ORDERED: LABETALOL HCL 5 MG/ML 20ML VIAL ONE (13:46)
[2023-05-12] MEDS ORDERED: PROPOFOL IV EMULSION 10 MG/ML 20 ML VIAL ONE (13:46)
[2023-05-12] MEDS ORDERED: GLYCOPYRROLATE INJ 0.2 MG/ML VIAL ONE (13:46)
[2023-05-12] MEDS ORDERED: ROCURONIUM BROMIDE 10 MG/ML 5ML VIAL IV ONE (13:46)
[2023-05-12] MEDS ORDERED: SEVOFLURANE INHAL SOLN 250 ML PEN BTL ONE (13:46)
[2023-05-12] MEDS ORDERED: LIDOCAINE HCL 2% LOCAL INJ 5 ML SDV VIAL INJ ONE (13:46)
[2023-05-12 16:55] VITALS: BP 177/89; PULSE 50; RESP 18; O2SAT 97
[2023-05-12] MEDS: CELECOXIB 100 MG CAP PO SCH (19:05)
[2023-05-12] MEDS: SODIUM CHLORIDE 0.9% 1000ML 1,000 ML IV SCH (19:06)
[2023-05-12 20:00] VITALS: BP 192/85; PULSE 53; RESP 18; TEMP 96.7; O2SAT 100
[2023-05-12] MEDS: ASPIRIN 325 MG TAB PO SCH (23:25)
[2023-05-13] VITALS: BP 137/61; PULSE 67; RESP 18; TEMP 97.4; O2SAT 100
[2023-05-13] MEDS: SODIUM CHLORIDE 0.9% 1000ML 1,000 ML IV SCH ×2 (03:00→11:29)
[2023-05-13 04:00] VITALS: BP 141/71; PULSE 63; RESP 18; TEMP 98.6; O2SAT 98
[2023-05-13 05:24] LABS: HEMATOCRIT 34.1 % (34.2-44.1); HEMOGLOBIN 11.4 g/dL (12.0-16.0)
[2023-05-13 08:00] VITALS: BP 141/71; PULSE 63; RESP 18; TEMP 98.6; O2SAT 98
[2023-05-13] MEDS: ASPIRIN 325 MG TAB PO SCH ×2 (08:29→16:24)
[2023-05-13] MEDS: CELECOXIB 100 MG CAP PO SCH ×2 (08:29→16:24)
[2023-05-13] MEDS ORDERED: ONDANSETRON HCL 4 MG ORAL DISINTEGRATING TAB PO PRN (10:15)
[2023-05-13] MEDS ORDERED: ACETAMINOPHEN 1000 MG/100 ML IV PRN (12:00)
[2023-05-13 12:09] VITALS: BP 160/82; PULSE 57; RESP 18; TEMP 97.9; O2SAT 100
[2023-05-13] MEDS ORDERED: ASPIRIN81 MG PO (15:54)
[2023-05-13 16:10] VITALS: BP 134/75; PULSE 60; RESP 18; TEMP 97.9; O2SAT 99
== END 2023-05-13 17:48 | disposition home health service (06) ==
LOC: OR 06:34 → PACU V 11:55 → MED/SURG 16:55
PROVIDERS: ADMIT Specialist; ATTEND Specialist
DX: M17.12 Unilateral primary osteoarthritis, left knee (principal); I10 Essential (primary) hypertension; E78.5 Hyperlipidemia, unspecified; K21.9 Gastro-esophageal reflux disease without esophagitis; R00.1 Bradycardia, unspecified; Z87.11 Personal history of peptic ulcer disease; Z01.812 Encounter for preprocedural laboratory examination; Z01.818 Encounter for other preprocedural examination; Z79.899 Other long term (current) drug therapy; Z79.1 Long term (current) use of non-steroidal anti-inflammatories (NSAID)
CPT/HCPCS: 27447; 36415 ×2; 71046; 73560; 85014; 85018; 85025; 86850; 86900; 93005; 97116 ×2; 97139; 97162; 97530 ×2; C1713 ×2; C1776 ×4; G0378 ×2; J0171; J0690 ×2; J1100 ×2; J1885; J2001; J2405; J2704; J2710; J2795; J3010; J3370; J3490; J7030; J7040; J7121

== ENCOUNTER 2023-10-07 10:45 | Outpatient (RCR) | payer MEDICARE ==
[~2023-10-07 10:45] MED LIST changes: +ASPIRIN81 MG PO
== END 2023-10-13 ==
LOC: PT 10:45
PROVIDERS: ATTEND Physician Assistant
DX: Z47.1 Aftercare following joint replacement surgery (principal); Z96.652 Presence of left artificial knee joint; S86.892D Other injury of other muscle(s) and tendon(s) at lower leg level, left leg, subsequent encounter; M62.81 Muscle weakness (generalized); M25.562 Pain in left knee; M25.662 Stiffness of left knee, not elsewhere classified; R26.2 Difficulty in walking, not elsewhere classified

== ENCOUNTER 2023-12-03 15:00 | Outpatient (RCR) | payer MEDICARE | END 2023-12-13 | LOC: PT 15:00 | PROVIDERS: ATTEND Physician Assistant | DX: Z47.1 Aftercare following joint replacement surgery (principal); Z96.652 Presence of left artificial knee joint; S86.892D Other injury of other muscle(s) and tendon(s) at lower leg level, left leg, subsequent encounter; M62.81 Muscle weakness (generalized); M25.562 Pain in left knee; R26.2 Difficulty in walking, not elsewhere classified; M25.662 Stiffness of left knee, not elsewhere classified ==

== ENCOUNTER 2023-12-14 11:28 | Emergency (ER) | payer MEDICARE ==
[~2023-12-14] VITALS: Ht 152.4 cm; Wt 66.2 kg
[2023-12-14 11:57] VITALS: PULSE 67; RESP 18; TEMP 98.2; O2SAT 100
[2023-12-14] MEDS ORDERED: Morphine 4mg INJECTION 4 MG/ML INJ IV STA (12:30)
[2023-12-14] MEDS ORDERED: SODIUM CHLORIDE FLUSH 10 ML SYR IV PRN (12:30)
[2023-12-14] MEDS ORDERED: ONDANSETRON HCL INJ 2MG/ML 2ML 2 MG/ML VIAL IV STA (12:30)
[2023-12-14] MEDS: IBUPROFEN 600 MG TAB PO ONE (12:49)
[2023-12-14] MEDS ORDERED: SODIUM CHLORIDE 0.9% 1000ML 1,000 ML IV ONE (13:00)
[2023-12-14] MEDS ORDERED: HYDROCODONE/APAP 5MG-325MG TAB PO ONE (13:00)
[2023-12-14 14:52] VITALS: BP 124/82; PULSE 84; RESP 18; TEMP 98.7
== END 2023-12-14 14:53 | disposition home or self-care (01) ==
LOC: ER 11:59
DX: M25.561 Pain in right knee (principal); M19.90 Unspecified osteoarthritis, unspecified site; Z96.652 Presence of left artificial knee joint; I10 Essential (primary) hypertension; Z88.6 Allergy status to analgesic agent; Z79.82 Long term (current) use of aspirin; Z79.899 Other long term (current) drug therapy
CPT/HCPCS: 93970; 99283

== ENCOUNTER 2024-03-14 12:46 | Emergency (ER) | payer MEDICARE ==
[~2024-03-14] VITALS: Ht 152.4 cm; Wt 65.8 kg
[2024-03-14 13:10] VITALS: PULSE 61; RESP 16; TEMP 98.4; O2SAT 100
[2024-03-14] MEDS ORDERED: GABAPENTIN300 MG PO (15:01)
[2024-03-14] MEDS: HYDROCODONE/APAP 5MG-325MG TAB PO ONE (21:07)
[2024-03-14] MEDS: KETOROLAC TROMETHAMINE 30 MG/ML VIAL IM ONE (21:07)
== END 2024-03-14 15:13 | disposition home or self-care (01) ==
LOC: ER 13:07
DX: M79.671 Pain in right foot (principal); G62.9 Polyneuropathy, unspecified; I10 Essential (primary) hypertension; K21.9 Gastro-esophageal reflux disease without esophagitis; Z96.652 Presence of left artificial knee joint
CPT/HCPCS: 73630; 99283; J1885

== ENCOUNTER 2024-07-03 14:26 | Emergency (ER) | payer MEDICARE ==
[~2024-07-03 14:26] MED LIST changes: +GABAPENTIN300 MG PO
== END 2024-07-03 15:05 | disposition short-term general hospital (02) ==
LOC: ER 15:05
DX: R19.7 Diarrhea, unspecified (principal)